=== PATIENT | female | born 1935 | race Caucasian/White ===

== ENCOUNTER 2017-09-11 15:41 | Emergency (ER) | payer MEDICARE ==
[~2017-09-11 15:41] MED LIST: ISOVUE-370 76%-LOCM 1 ML ONE; Iopamidol 370 76% 50 ML VIAL FS ONE
[2017-09-11] MEDS ORDERED: Dicyclomine 20 MG TAB ONE (16:54)
[2017-09-11 16:56] LABS: #Eosinphils 0.1 thou/uL (0.0-0.7); #Lymphocytes 0.8 thou/uL (1.20-3.40); #Monocytes 0.4 thou/uL (0.11-0.59); %Basophils 0.2 % (0.0-1.0); %Eosinophils 1.3 % (0.0-10.0); %Lymphocytes 18.4 % (21.0-51.0); %Monocytes 9.8 % (0.0-10.0); %Neutrophils 70.4 % (42.0-75.0); Hemoglobin 12.2 g/dL (12.0-16.0); Mean Corpuscular Hemoglobin 27.7 pg (27.0-31.0); Mean Corpuscular Volume 86.6 fl (81.0-99.0); Mean Platelet Volume 7.1 fL (7.4-10.4); Platelet Count 238 thou/uL (130-400); RBC Distribution Width 13.4 % (11.5-14.5); Red Blood Cell (RBC) Count 4.41 mill/uL (4.20-5.40); White Blood Cell (WBC) Count 4.3 thou/uL (4.8-10.8)
[2017-09-11 17:14] LABS: ALT (SGPT) 25 U/L (8-55); AST (SGOT) 38 U/L (5-34); Albumin 3.9 g/dL (3.4-4.8); Alkaline Phosphatase 47 U/L (40-150); Anion Gap 12 mmol/L (10-20); BUN (Urea Nitrogen) 18 mg/dL (9.8-20.1); Bilirubin, Total 0.5 mg/dL (0.2-1.2); CK (CPK) 183 U/L (29-168); Calc. Creatinine Clearance 0 mL/min (70-130); Calcium 9.3 mg/dL (7.8-10.44); Carbon Dioxide 24 mmol/L (23-31); Chloride 100 mmol/L (98-107); Estimated GFR-MDRD 47; Globulin 3.1 g/dL (2.4-3.5); Glucose 197 mg/dL (83-110); Lipase 5 U/L (8-78); Potassium 4.1 mmol/L (3.5-5.1); Sodium 132 mmol/L (136-145)
[2017-09-11 17:17] LABS: CKMB 2.9 ng/mL (0-6.6); Troponin I 0.047 ng/mL (< 0.028)
[2017-09-11 17:22] LABS: Bilirubin Small (Negative); Blood, Urine Negative (Negative); Clarity CLEAR (Clear); Glucose, Urine (Dipstick) Negative (Negative); Leukocyte Negative (Negative); Nitrite Negative (Negative); Protein, Urine (Dipstick) 30 mg/dL (Neg-Trace); Urobilinogen 0.2 mg/dL (0.2-1.0)
[2017-09-11 17:30] LABS: Bacteria/HPF 2+ HPF (None Seen); Hyaline Casts/LPF NONE SEEN LPF (0-3 Hyaline); RBC/HPF None Seen HPF (0-3); Squamous Epithelial 0-3 HPF (0-3); WBC/HPF None Seen HPF (0-3)
--- NOTE | 2017-09-11 19:03 | CT ---
ABDOMEN AND PELVIS CT SCAN WITH IV CONTRAST: HISTORY: An 82-year-old female with a history of nausea, vomiting, diarrhea, and left lower quadrant pain with concern for acute diverticulitis. FINDINGS: There are prominent linear and interstitial parenchymal changes in the lung bases, nonspecific, possi harika some chronic lung change. Moderate sized hiatal hernia. The liver, gallbladder, pancreas, splee n, and adrenal glands are unremarkable. There is no evidence for a renal calculus or acute obstru ction. A portion of the pelvis is considerably obscured by dense metal artifact from the left total hip replacement. Extensive post surgical changes are noted in the lumbar spine, consistent with a la minectomy, as well as multiple pedicle screws. Some of the jejunal bowel loops are at the upper rang e of normal in size but without overt wall thickening. There is a normal appearing appendix. No CT evidence for acute diverticulitis. No abscess or abnormal fluid collection. IMPRESSION: Postoperative changes with left hip replacement and pedicle screw and laminectomy changes of the lumb ar spine. No evidence for acute diverticulitis. No evidence for renal calculus or genitourinary obs truction. Normal appearing appendix. Some borderline sized small bowel loops without overt wall thi ckening, nonspecific, possibly some mild ileus or, less likely, early or minimal enteritis. POS: [facility]
--- NOTE | 2017-09-11 19:44 | RAD ---
UPRIGHT PORTABLE CHEST: HISTORY: An 82-year-old female with a history of nausea and vomiting. FINDINGS: Increased markings are noted bilaterally with slight costophrenic angle blunting. Old granulomatous disease. Possible bilateral C7 cervical ribs. Degenerative changes of both shoulders. IMPRESSION: Minimal increased markings in the mid and lower lung zones bilaterally, nonspecific, possibly chronic . Old granulomatous disease. No evidence for confluent pneumonia. POS: [facility]
[2017-09-11 20:28] LABS: Troponin I 0.043 ng/mL (< 0.028)
[2017-09-11] MEDS ORDERED: hydrALAZINE 20 MG/ML VIAL ONE (21:33)
[2017-09-11] MEDS ORDERED: Ondansetron HCl/PF 4 MG/2 ML Vial ONE (22:20)
[2017-09-11] MEDS ORDERED: Ondansetron ODT 4 MG TAB ONE ×2 (22:22→22:42)
[2017-09-11] MEDS ORDERED: Promethazine HCl 25 MG SUPP ONE (22:44)
--- NOTE | 2017-09-17 00:26 | EKG ---
Test Reason : AMS Blood Pressure : / mmHG Vent. Rate : 074 BPM Atrial Rate : 074 BPM P-R Int : 184 ms QRS Dur : 138 ms QT Int : 440 ms P-R-T Axes : 055 076 -40 degrees QTc Int : 488 ms Normal sinus rhythm Possible Left atrial enlargement Right bundle branch block T wave abnormality, consider inferior ischemia Abnormal ECG Confirmed by LOPEZ BOWMAN ([id number]), desk editor KHALIF HOLT ([id number] on 09/17/2017 12:25:11 AM Referred By: Confirmed By:LOPEZ BOWMAN
== END 2017-09-11 23:00 | disposition home or self-care (01) ==
LOC: ERS 15:41
DX: K52.9 Noninfective gastroenteritis and colitis, unspecified (principal); N39.0 Urinary tract infection, site not specified; R11.2 Nausea with vomiting, unspecified; E11.9 Type 2 diabetes mellitus without complications; E78.5 Hyperlipidemia, unspecified; I10 Essential (primary) hypertension
CPT/HCPCS: 36415; 36416; 51701; 71045; 74177; 80053; 81003; 81015; 82274; 82553; 83690; 83880; 84484; 85025; 93005; 96361; 96372; 96374; A4353; J0360; J2405; Q0162